=== PATIENT | male | born 1950 | race Caucasian/White ===

== ENCOUNTER → 2017-12-28 | Outpatient (CLI) | payer MEDICARE, BC ==
--- NOTE | 2017-12-28 12:05 | Diagnostic Imaging Report ---
PROCEDURE:X-RAY ABDOMEN - KUB COMPARISON:None. INDICATIONS:RENAL CALCULI FINDINGS: Multiple air-filled loops of small bowel in the abdomen, which are in the upper limit of normal, measuring up to 3.0 cm. Large bowel is unremarkable. There are no calcifications projected over the renal shadows, expected course of the ureters or bladder. Multiple bilateral pelvic phleboliths. There are no acute osseous abnormalities. Degenerative disc changes in the lumbosacral spine and degenerative changes in bilateral hip joints, left greater than right. CONCLUSION: 1. No calcifications project over the genitourinary system. 2. Multiple air-filled loops of small bowel in the abdomen, in the upper limit of normal. No definite obstruction. Kevin Oropeza M.D. Dictated by: Kevin Oropeza M.D. on 12/28/2017 at 12:04 Electronically approved by: Kevin Oropeza M.D. on 12/28/2017 at 12:04
== END ==
LOC: RAD 10:52
PROVIDERS: ATTEND Urology
DX: Z87.442 Personal history of urinary calculi (principal)
CPT/HCPCS: 74018

== ENCOUNTER → 2018-04-06 | Outpatient (CLI) | payer MEDICARE, BC ==
--- NOTE | 2018-04-06 17:00 | Diagnostic Imaging Report ---
EXAM: Scrotal Ultrasound INDICATION: SPERMATOCELE OF EPIDIDYMIS COMPARISON: None TECHNIQUE: Transverse and longitudinal images were obtained of the scrotum with grayscale imaging, color Doppler and spectral waveform analysis. FINDINGS: Right testis: Size: 3.7 x 1.9 x 2.7 cm, normal in size. Echogenicity: Normal Mass/Cysts: 3 small oval anechoic lesions ranging size from 0.4 cm to 0.5 cm in maximal dimension. Left testis: Size: 3.1 x 1.6 x 2.6 cm, normal in size. Echogenicity: Normal Mass/Cysts: Anechoic lesion measuring 0.4 cm. Epididymis: Appearance: Normal in size without increased vascularity. Mass/Cysts: 0.7 x 0.6 x 0.5 cm anechoic lesion in the right epididymal head. 0.2 x 0.2 x 0.2 cm anechoic lesion in the left epididymal head. 0.5 x 0.4 x 0.6 cm anechoic lesion in the epididymal tail. Extratesticular: Masses: None Fluid collections: None Doppler: Normal arterial flow to both testes and symmetrical flow on color Doppler evaluation is seen. No evidence of testicular torsion. IMPRESSION: 1. Bilateral spermatoceles versus epididymal cysts the largest on the right measuring 0.7 cm. 2. Bilateral small simple testicular cysts, the largest on the lateral right measuring 0.5 cm. Signed by: Dr. Juan C Bray M.D. on 04/06/2018 4:56 PM
== END ==
LOC: US 13:56
PROVIDERS: ATTEND Urology
DX: N43.40 Spermatocele of epididymis, unspecified (principal)
CPT/HCPCS: 76870; 93976